=== PATIENT | male | born 2005 | race Caucasian/White ===

== ENCOUNTER → 2023-08-28 14:23 | Outpatient (REF) | payer BC, SELFPAY | LOC: HWRAD 14:23 | PROVIDERS: ATTENDING PHYSICIAN Physician Assistant; FAMILY PHYSICIAN Family Medicine | DX: R07.89 Other chest pain (principal) | CPT/HCPCS: 71270; Q9967 ==

== ENCOUNTER → 2024-01-25 09:11 | Outpatient (REF) | payer BC, SELFPAY ==
[2024-01-25 10:01] LABS: % Basophils 0.9 % (0-2); % Eosinophils 6.2 % (0-6); % Immature Granulocytes 0.6 % (0-0.5); % Lymphocytes 29.5 % (20.5-51.1); % Monocytes 7.1 % (1.7-9.3); % Neutrophils 55.7 % (42.2-75.2); Absolute Basophils 0.1 10^3/uL (0-0.2); Absolute Eosinophils 0.5 10^3/uL (0-0.7); Absolute Immature Granulocytes 0.1 10^3/uL (0-0.05); Absolute Lymphocytes 2.5 10^3/uL (1.2-3.4); Absolute Monocytes 0.6 10^3/uL (0.1-0.6); Absolute Neutrophils 4.8 10^3/uL (1.4-6.5); Hematocrit 42.2 % (39.0-52.0); Hemoglobin 15.4 g/dL (13.0-18.0); Mean Corp Hgb Conc. 36.5 g/dL (33.0-37.0); Mean Corpuscular Hgb 31.3 pg (27.0-31.0); Mean Corpuscular Volume 85.8 fL (80.0-94.0); Mean Platelet Volume 9.2 fL (7.4-10.4); Nucleated Red Blood Cells % 0 % (-); Platelet Count 281 10^3/uL (130-400); Red Blood Cell Count 4.92 10^6/uL (4.70-6.10); Red Cell Dist. Width 12.1 % (11.5-14.5); White Blood Cell Count 8.6 10^3/uL (4.8-10.8)
[2024-01-25 10:40] LABS: ALT (SGPT) 29 U/L (0-50); AST (SGOT) 31 U/L (17-59); Albumin 4.7 g/dl (3.5-5.0); Alkaline Phosphatase 43 U/L (38-126); Blood Urea Nitrogen 17 mg/dl (9-20); Calcium 9.9 mg/dl (8.4-10.2); Carbon Dioxide 30 mmol/L (22-30); Chloride 99 mmol/L (98-107); Glucose 88 mg/dl (70-99); HDL Cholesterol 57 mg/dl; LDL Cholesterol, Calculated 72 mg/dl; Potassium 4.4 mmol/L (3.5-5.1); Sodium 144 mmol/L (135-145); Total Bilirubin 0.8 mg/dl (0.2-1.3); Total Cholesterol 146 mg/dl (50-199); Total Protein 7.1 g/dl (6.3-8.2); Triglyceride 86 mg/dl (10-149); Very Low Density Lipoprotein 17 mg/dl (0-30); eGFR > 60.00
[2024-01-25 10:53] LABS: Free T4 1.06 ng/dl (0.78-2.19); Vitamin D, 25-OH*** 35.3 ng/mL (30-80)
[2024-01-25 11:06] LABS: TSH 1.46 uIU/ml (0.47-4.68)
[2024-01-25 13:41] LABS: Glycohemoglobin (HgbA1c) 4.8 % (4.0-5.6)
== END ==
LOC: REG 09:11
PROVIDERS: ATTENDING PHYSICIAN Physician Assistant
DX: Z76.89 Persons encountering health services in other specified circumstances (principal); Z13.9 Encounter for screening, unspecified; J45.20 Mild intermittent asthma, uncomplicated; R07.89 Other chest pain
CPT/HCPCS: 36415; 80053; 80061; 82306; 83036; 84439; 84443; 85025